=== PATIENT | male | born 1940 | race American Indian/Alaskan Native ===

== ENCOUNTER 2025-01-25 13:18 | Emergency (ER) | payer MEDICARE, OTHER ==
[~2025-01-25] VITALS: Ht 162.6 cm; Wt 65.9 kg
[~2025-01-25 13:18] MED LIST: ACTOS45 MG PO; ASPIR 8181 MG PO; FENOFIBRATE54 MG PO; FERROUS GLUCON324 M2 PO; GLIPIZIDE XL10 MG PO; GLUCOPHAGE1000 MG PO; HYDROCHLOROTH12.5 M1 PO; HYDROCHLOROTH12.5 MG PO; JANUMET XR 50-1 EAC1 PO; JANUVIA100 MG PO; LEVOTHROID25 MCG PO; LOPRESSOR50 MG PO; MICARDIS80 MG PO; MIRALAX17 GM PO; NORCO 7.5-3251 EACH PO; OXYCODONE HCL5 MG PO; SIMVASTATIN20 MG PO; TOPROL XL100 MG PO; TOPROL XL50 MG PO; VITAMIN D-32000 UNI1 PO; XARELTO10 MG PO; ZESTRIL40 MG PO
[2025-01-25 13:59] LABS: MCH 23.3 PG (25.7-32.2); MCHC 30.7 g/dL (32.3-36.5); MCV 75.9 fL (79.0-92.2); RBC 4.07 M/uL (4.63-6.08)
[2025-01-25 14:20] LABS: ALT (SGPT) 11.0 U/L (14-59); AST (SGOT) 20.0 U/L (15-37); GLOMERULAR FILTRATION RATE,EST 22.0 mL/min (>60); PROTEIN, TOTAL 6.8 g/dL (6.4-8.2); UREA NITROGEN 85.0 mg/dL (7-18)
[2025-01-25 14:22] LABS: INR 1.44 (0.80-1.30); PROTIME 16.6 Sec (11.2-14.2)
[2025-01-25 14:29] LABS: BANDS, MANUAL DIFF 2; LYMPHOCYTES, MANUAL DIFF 9; MONOCYTES, MANUAL DIFF 9; NEUTROPHILS, MANUAL DIFF 80
[2025-01-25] MEDS ORDERED: SODIUM CHLORIDE 0.9% 1,000 ML IV SCH (16:00)
[2025-01-25] MEDS ORDERED: PIPERACILLIN/TAZOBACTAM 4.5 GM in SODIUM CHLORIDE 0.9% 100 ML IV ONE (16:00)
[2025-01-25] MEDS ORDERED: fentaNYL citrate 100 MCG/2 ML VIAL IV PRN (16:15)
[2025-01-25 17:00] VITALS: BP 119/84
--- NOTE | 2025-01-26 14:17 | EKG ---
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
== END 2025-01-25 17:00 | disposition short-term general hospital (02) ==
LOC: ED 13:18
PROVIDERS: Emergency Medicine
DX: K55.029 Acute infarction of small intestine, extent unspecified (principal); I63.9 Cerebral infarction, unspecified; E11.9 Type 2 diabetes mellitus without complications; I45.10 Unspecified right bundle-branch block; Z87.891 Personal history of nicotine dependence; Z79.899 Other long term (current) drug therapy; Z79.82 Long term (current) use of aspirin
CPT/HCPCS: 36415; 70450; 70496; 70498; 74176; 80053; 84484; 85025; 85610; 93005; 93010; 96365; 96375; 99285-25; J2543; J3010; Q9967